=== PATIENT | male | born 1980 | race Two or more races ===

== ENCOUNTER 2017-10-18 11:38 | Emergency (ER) | payer MEDICAID, OTHER ==
[~2017-10-18] VITALS: Ht 188 cm; Wt 90.7 kg
[2017-10-18 13:54] LABS: Basophils # (auto) 0.1 uL; Basophils % (auto) 0.4 % (0.0-2.0); Eosinophils # (auto) 0.1 uL; Neutrophils % (auto) 63.2 % (37.0-80.0); White Blood Cell 12.6 10^3/uL (4.4-10.8)
[2017-10-18 13:55] LABS: Eosinophils % (auto) 0.7 % (0.0-7.0); Hematocrit 46.8 % (41.0-53.0); Hemoglobin 15.4 g/dL (13.5-17.5); Lymphocytes # (auto) 3.4 uL; Lymphocytes % (auto) 27.1 % (10.0-50.0); Mean Corpuscular Hemoglobin 27.5 pg (28.0-32.0); Mean Corpuscular Hgb Conc. 32.9 g/dL (32.0-36.0); Mean Corpuscular Volume 83.6 fL (80.0-100.0); Monocytes # (auto) 1.1 uL; Monocytes % (auto) 8.6 % (0.0-12.0); Platelet Count (auto) 297 10^3/uL (140-450); Red Blood Cells 5.59 10^6/uL (4.5-5.90); Red Cell Distribution Width 13.9 % (11.8-14.3)
[2017-10-18 14:16] LABS: Alanine Aminotransferase 36 U/L (16-61); Albumin 4.5 g/dL (3.4-5.0); Alkaline Phosphatase 69 U/L (45-117); Anion Gap 10 (5-15); Aspartate Aminotransferase 15 U/L (15-37); BUN/Creatinine Ratio 6.6; Bilirubin, Total 0.8 mg/dL (0.2-1.0); Blood Urea Nitrogen 8 mg/dL (7-18); Calcium 9.2 mg/dL (8.5-10.1); Carbon Dioxide 26 mmol/L (21-32); Chloride 102 mmol/L (98-107); GFR African American 86 mL/min; GFR Non-African American 71 mL/min; Glucose 85 mg/dL (74-106); Magnesium 2.4 mg/dL (1.6-2.6); Potassium 3.9 mmol/L (3.5-5.1); Sodium 138 mmol/L (136-145); Total Protein 8.7 g/dL (6.4-8.2)
[2017-10-18] MEDS ORDERED: KETOROLAC TROMETH 30 MG/ML 1ML VIAL IV ONE (15:00)
[2017-10-18] MEDS ORDERED: cefTRIAXone 1GM/10ml IVPUSH 10 ML IV ONE (15:00)
[2017-10-18] MEDS ORDERED: MORPHINE SULF INJ 2 MG/ML SYRINGE 1ML IV ONE (16:00)
[2017-10-18] MEDS ORDERED: ONDANSETRON HCL 4 MG/2 ML VIAL IV ONE (16:00)
[2017-10-18] MEDS ORDERED: SODIUM CHLORIDE 0.9% 1,000 ML IV ONE (16:00)
[2017-10-18 18:30] VITALS: BP 118/69
== END 2017-10-18 20:27 | disposition home or self-care (01) ==
LOC: ER 11:38
DX: G43.909 Migraine, unspecified, not intractable, without status migrainosus (principal); J01.90 Acute sinusitis, unspecified; J11.1 Influenza due to unidentified influenza virus with other respiratory manifestations; Z82.49 Family history of ischemic heart disease and other diseases of the circulatory system
CPT/HCPCS: 36415; 70450; 71046; 80053; 83735; 84484; 85025; 87804; 93005; 94761; 96361; 96374; 96375; 99285; J1885; J2270; J2405; 87400

== ENCOUNTER 2017-12-06 11:32 | Emergency (ER) | payer MEDICAID ==
[~2017-12-06] VITALS: Ht 188 cm; Wt 2.8 kg
[2017-12-06 12:22] LABS: Basophils # (auto) 0.2 uL; Eosinophils # (auto) 0.1 uL; Eosinophils % (auto) 1.2 % (0.0-7.0); Hematocrit 45.4 % (41.0-53.0); Hemoglobin 14.8 g/dL (13.5-17.5); Lymphocytes # (auto) 1.6 uL; Lymphocytes % (auto) 19.1 % (10.0-50.0); Mean Corpuscular Hemoglobin 27.5 pg (28.0-32.0); Mean Corpuscular Hgb Conc. 32.7 g/dL (32.0-36.0); Mean Corpuscular Volume 84.1 fL (80.0-100.0); Monocytes # (auto) 0.6 uL; Monocytes % (auto) 7.7 % (0.0-12.0); Neutrophils # (auto) 5.9 uL; Nucleated Red Blood Cells % 0.1 %; Platelet Count (auto) 332 10^3/uL (140-450); Red Blood Cells 5.39 10^6/uL (4.5-5.90); Red Cell Distribution Width 13.5 % (11.8-14.3); White Blood Cell 8.4 10^3/uL (4.4-10.8)
[2017-12-06 12:36] LABS: INR 1.06 (0.9-1.15); Prothrombin Time 11.6 sec (9.37-12.3)
[2017-12-06 12:44] LABS: Albumin 3.9 g/dL (3.4-5.0); BUN/Creatinine Ratio 8.5; Bilirubin, Total 0.3 mg/dL (0.2-1.0); Calcium 9.1 mg/dL (8.5-10.1); Potassium 3.8 mmol/L (3.5-5.1); Total Protein 8.3 g/dL (6.4-8.2)
[2017-12-06] MEDS ORDERED: ACETAMINOPHEN 325 MG TAB PO ONE ×2 (13:22→13:30)
[2017-12-06] MEDS ORDERED: KETOROLAC TROMETH 60MG/2ML VIAL IM ONE ×2 (13:55→14:00)
[2017-12-06] MEDS ORDERED: PROMETHAZINE HCL 25 MG/ML 1ML ONE (13:55)
[2017-12-06] MEDS ORDERED: PROMETHAZINE HCL 25 MG/ML 1ML IM ONE (14:00)
[2017-12-06] MEDS ORDERED: MEPERIDINE HCL (50 MG/ML) 1 ML VIAL IM ONE (15:15)
[2017-12-06 15:20] VITALS: BP 126/84
== END 2017-12-06 15:35 | disposition home or self-care (01) ==
LOC: ER 11:32 → EDBD 11:32 → EDSEX 11:32 → ER 15:35
DX: J01.90 Acute sinusitis, unspecified (principal); I10 Essential (primary) hypertension; Z86.718 Personal history of other venous thrombosis and embolism
CPT/HCPCS: 36415; 70450; 80053; 85025; 85610; 96372; 99285; J1885; J2175; J2550

== ENCOUNTER 2019-08-22 18:53 | Emergency (ER) | payer MEDICAID ==
[~2019-08-22] VITALS: Ht 182.9 cm; Wt 99.8 kg
[2019-08-22 19:00] VITALS: BP 107/72
== END 2019-08-22 21:54 | disposition left against medical advice (07) ==
LOC: ER 18:58
DX: R10.9 Unspecified abdominal pain (principal); R42 Dizziness and giddiness; R51 Headache; Z53.21 Procedure and treatment not carried out due to patient leaving prior to being seen by health care provider
CPT/HCPCS: 93005

== ENCOUNTER 2024-09-03 10:27 | Inpatient (IN) | payer MEDICAID ==
[~2024-09-03] VITALS: Ht 188 cm; Wt 100.5 kg
--- NOTE | 2024-09-03 10:50 | ED.PDOC ---
History of Present Illness HPI Comments 44M presents to the Er w/ prior Hx of HTN which may be associated to the c/c of High Blood Pressure. Pt reports on having a Hagan for the past 2 days and has to keep checking on his BP due from his medical Hx. Pt reports that when he checked his BP, the monitor read his HR to be in the low 40's this morning. Pt notes that he does not take any BP medications but only pain medication. PMHx of anxiety and DVT. Denies chills, fever, N/V/D,SOB, but did notice 1 day of dizziness and lightheadedness Chief Complaint: High Blood Pressure Time Seen by MD: 10:30 Primary Care Provider: EDUARD Reviewed Notes: Nurses Notes, Medications, Allergies Allergies: Coded Allergies: NO KNOWN ALLERGIES (Unverified , 10/18/17) Information Source: Patient Mode of Arrival: Ambulatory Severity: Moderate Timing: Hours Duration: Since onset, Hours Prehospital treatment: None Past Medical History PAST MEDICAL HISTORY: Anxiety, HTN Past Medical History (Other): DVT Surgical History: Denies all surgeries Family History Family History: Reviewed,noncontributory to illness, Unknown Social History Smoker: Non-Smoker Alcohol: Denies ETOH Use Drugs: Denies Drug Use Lives In: Home Constitutional: denies: chills, diaphoresis, fatigue, fever, malaise, sweats, weakness, others EENTM: denies: blurred vision, double vision, ear bleeding, ear discharge, ear drainage, ear pain, ear ringing, eye pain, eye redness, hearing loss, mouth pain, mouth swelling, nasal discharge, nose bleeding, nose congestion, nose pain, photophobia, tearing, throat pain, throat swelling, voice changes, others Respiratory: denies: cough, hemoptysis, orthopnea, SOB at rest, shortness of breath, SOB with excertion, stridor, wheezing, others Cardiovascular: reports: irregular heart beat, others (Low HR); denies: chest pain, dizzy spells, diaphoresis, Dyspnea on exertion, edema, left arm pain, lightheadedness, palpitations, PND, syncope Gastrointestinal: denies: abdomen distended, abdominal pain, blood streaked bowels, constipated, diarrhea, dysphagia, difficulty swallowing, hematemesis, melena, nausea, poor appetite, poor fluid intake, rectal bleeding, rectal pain, vomiting, others Genitourinary: denies: burning, dysuria, flank pain, frequency, hematuria, incontinence, penile discharge, penile sore, pain, testicle pain, testicle swelling, urgency, others Neurological: reports: dizziness; denies: fainting, headache, left sided numbness, left sided weakness, numbness, paresthesia, pre-existing deficit, right sided numbness, right sided weakness, seizure, speech problems, tingling, tremors, weakness, others Musculoskeletal: denies: back pain, gout, joint pain, joint swelling, muscle pain, muscle stiffness, neck pain, others Integumetry: denies: bruises, change in color, change in hair/nails, dryness, laceration, lesions, lumps, rash, wounds, others Allergic/Immunocompromised: denies: Difficulty Healing, Frequent Infections, Hives, Itching, others Hematologic/Lymphatic: denies: anemia, blood clots, easy bleeding, easy bru ising, swollen glands, others Endocrine: denies: excessive hunger, excessive sweating, excessive thirst, e xcessive urination, flushing, intolerance to cold, intolerance to heat, unexplained weight gain, unexplained weight loss, others Psychiatric: denies: anxiety, bipolar disorder, depression, hopeless, panic disorder, schizophrenia, sleepless, suicidal, others All Other Systems: Reviewed and Negative Physical Exam General Appearance: No Apparent Distress, Normal HEENT: Normal ENT Inspection, Pharynx Normal, TMs Normal Neck: Full Range of Motion, Non-Tender, Normal, Normal Inspection Respiratory: Chest Non-Tender, Lungs Clear, No Accessory Muscle Use, No Respiratory Distress, Normal Breath Sounds Cardiovascular: No Edema, No JVD, No Murmur, No Gallop, Normal Peripheral Pulses, Regular Rate/Rhythm Breast Exam: Deferred Gastrointestinal: No Organomegaly, Non Tender, No Pulsatile Mass, Normal Bowel Sounds, Soft Genitalia: Deferred Pelvic: Deferred Rectal: Deferred Extremities: No calf tenderness, Normal capillary refill, Normal inspection, Normal range of motion, Non-tender, No pedal edema Musculoskeletal : Apperance: Normal Neurologic: Alert, derrick hand II-XII nml as Tested, No Motor Deficits, Normal Affect, Normal Mood, No Sensory Deficits Cerebellar Function: Normal Reflexes: Normal Skin: Dry, Normal Color, Warm Lymphatic: No Adenopathy Was a procedure done? Was a procedure done?: No EKG EKG : Pulse Rate (adult): 71 [place]: Normal Cardiac Rhythm: NSR Block: None Hypertrophy: LVH ST: Normal Differential Dx Considerations may include: slow intermittent afib, sinus bradycardia, intermittent heart block, electrolyte disorders, beta javier effect X-Ray, Labs, Meds, VS Vital Signs Date Time Temp Pulse Resp B/P (MAP) Pulse Ox O2 Delivery O2 Flow Rate FiO2 09/03/24 11:19 93 18 98 Room Air* 0 21 09/03/24 11:19 98.1 98 18 151/107 (122) 99 98.1 09/03/24 10:40 71 09/03/24 10:32 98.1 86 18 148/104 (119) 100 Lab Test 09/03/24 11:46 09/03/24 10:54 Range/Units Troponin I High Sensitivity Pending 8 </=54 ng/L White Blood Count 6.2 4.4-10.8 10^3/uL Red Blood Count 5.36 4.5-5.90 10^6/uL Hemoglobin 14.9 13.5-17.5 g/dL Hematocrit 46.0 41.0-53.0 % Mean Corpuscular Volume 85.8 80.0-100.0 fL Mean Corpuscular Hemoglobin 27.8 L 28.0-32.0 pg Mean Corpuscular Hemoglobin Concent 32.4 32.0-36.0 g/dL Red Cell Distribution Width 14.5 H 11.8-14.3 % Platelet Count 247 140-450 10^3/uL Mean Platelet Volume 8.6 6.9-10.8 fL Neutrophils (%) (Auto) 56.3 37.0-80.0 % Lymphocytes (%) (Auto) 34.0 10.0-50.0 % Monocytes (%) (Auto) 6.7 0.0-12.0 % Eosinophils (%) (Auto) 2.5 0.0-7.0 % Basophils (%) (Auto) 0.5 0.0-2.0 % Neutrophils # (Auto) 3.5 1.6-8.6 10 ^3/uL Lymphocytes # (Auto) 2.1 0.4-5.4 10 ^3/uL Monocytes # (Auto) 0.4 0-1.3 10 ^3/uL Eosinophils # (Auto) 0.2 0-0.8 10 ^3/uL Basophils # (Auto) 0 0-0.2 10 ^3/uL Nucleated Red Blood Cells 0.1 % Sodium Level 140 136-145 mmol/L Potassium Level 3.5 3.5-5.1 mmol/L Chloride Level 102 98-107 mmol/L Carbon Dioxide Level 31 20-31 mmol/L Anion Gap 7 5-15 Blood Urea Nitrogen 11 9-23 mg/dL Creatinine 1.30 0.700-1.30 mg/dL Glomerular Filtration Rate Calc 70 >90 mL/min BUN/Creatinine Ratio 8.5 L 10.0-20.0 Serum Glucose 107 H 74-106 mg/dL Calcium Level 10.2 8.7-10.4 mg/dL Total Bilirubin 0.8 0.2-1.0 mg/dL Aspartate Amino Transferase (AST) 30 13-40 U/L Alanine Aminotransferase (ALT) 50 H 7-40 U/L Alkaline Phosphatase 63 46-116 U/L Total Protein 7.8 5.7-8.2 g/dL Albumin 4.8 3.2-4.8 g/dL Current Medications Medications (Trade) Dose Ordered Sig/Corine Route Start Time Stop Time Status Last Admin Acetaminophen/ Hydrocodone Bitart ([place] 5/325MG Tab) 1 tab ONCE ONCE PO 09/03/24 11:00 09/03/24 11:01 DC 09/03/24 11:27 Time of 1ST Reevaluation: 11:00 Reevaluation 1ST: Unchanged Time of 2ND Reevaluation: 12:04 Reevaluation 2ND: Improved Patient Education/Counseling: Diagnosis, Treatment, Prognosis Family Education/Counseling: No Family Present Additional Information - I reviewed the following notes from patient's past medical encounters:12/06/17 - The following tests were ordered, and results were reviewed by me: Labs, X- Ray, EKG - I reviewed and agreed with the following test results read by other provider: cxr - I discussed treatments and results with medical personnel and sales enablement consultant pt had verified bradycardia on his monitor with concurrent dizziness symptoms. the cardiac workup was unrevealing in the ER. we have not captured any arrhythmias, but if the arrythmia were intermittent, he would need continuous monitoring. he will be admitted Departure 1 Departure Time of Disposition: 12:06 Impression: Primary Impression: Symptomatic bradycardia Additional Impressions: Accelerated essential hypertension Renal insufficiency Disposition: 09 ADMITTED INPATIENT Admit to: Tele Condition: Stable Critical Care Note Critical Care Time?: Yes (45 min-critical care time only) Critical care comment: due to the likelihood of patients condition suddenly deteriorating, the care requires my highest level of attention, readiness to intervene. my critical care include assessing and reassessing of patient's condition, response to treatments, ordering the appropriate tests, reviewing the results, ordering of treatments, discussing the care with medical personnel and consultants, and formulating a treatment plan, as well a reviewing various medical records. this include at least 50% face-face interaction, and does not include any procedures Stability Stability form required: No Heart Score Heart Score: Heart Score Response (Comments) Value History Slightly Suspicious 0 EKG Repolarization Disturb 1 Age <45 0 Risk Factors 1 or 2 risk factors 1 Troponin Normal limit 0 Total 2 I personally scribed for JOSE MILLAN MD ([email or web address]) on 09/03/24 at 10:50. Electronically submitted by Deep Velasquez ([email or web address]). JOSE MILLAN MD Sep 03, 2024 10:50
[2024-09-03 11:04] LABS: Basophils # (auto) 0 10 ^3/uL (0-0.2); Basophils % (auto) 0.5 % (0.0-2.0); Eosinophils # (auto) 0.2 10 ^3/uL (0-0.8); Eosinophils % (auto) 2.5 % (0.0-7.0); Hemoglobin 14.9 g/dL (13.5-17.5); Lymphocytes # (auto) 2.1 10 ^3/uL (0.4-5.4); Mean Corpuscular Hemoglobin 27.8 pg (28.0-32.0); Mean Corpuscular Hgb Conc. 32.4 g/dL (32.0-36.0); Mean Corpuscular Volume 85.8 fL (80.0-100.0); Monocytes # (auto) 0.4 10 ^3/uL (0-1.3); Monocytes % (auto) 6.7 % (0.0-12.0); Neutrophils # (auto) 3.5 10 ^3/uL (1.6-8.6); Neutrophils % (auto) 56.3 % (37.0-80.0); Nucleated Red Blood Cells % 0.1 %; Platelet Count (auto) 247 10^3/uL (140-450); Red Blood Cells 5.36 10^6/uL (4.5-5.90); Red Cell Distribution Width 14.5 % (11.8-14.3); White Blood Cell 6.2 10^3/uL (4.4-10.8)
[2024-09-03 11:19] VITALS: PULSE 93; RESP 18; O2SAT 98
[2024-09-03 11:22] LABS: Alkaline Phosphatase 63 U/L (46-116); Anion Gap 7 (5-15); Aspartate Aminotransferase 30 U/L (13-40); BUN/Creatinine Ratio 8.5 (10.0-20.0); Blood Urea Nitrogen 11 mg/dL (9-23); Calcium 10.2 mg/dL (8.7-10.4); Carbon Dioxide 31 mmol/L (20-31); Chloride 102 mmol/L (98-107); Potassium 3.5 mmol/L (3.5-5.1); Sodium 140 mmol/L (136-145)
[2024-09-03 11:23] LABS: Bilirubin, Total 0.8 mg/dL (0.2-1.0); Total Protein 7.8 g/dL (5.7-8.2)
--- NOTE | 2024-09-03 11:23 | DVH ---
EXAM: XR Chest, 1 View CLINICAL INDICATION: bradycardia, dizzy TECHNIQUE: Frontal view of the chest. COMPARISON: None FINDINGS: LUNGS AND PLEURAL SPACES: Unremarkable. No consolidation. No pneumothorax. HEART: Unremarkable. No cardiomegaly. MEDIASTINUM: Unremarkable. Normal mediastinal contour. BONES/JOINTS: Unremarkable. No acute fracture. OTHER FINDINGS: . . . IMPRESSION: No acute cardiopulmonary process. HS:Y
[2024-09-03] MEDS: HYDROcodone-ACET 5/325MG TAB PO ONE (11:27)
[2024-09-03 11:33] LABS: Alanine Aminotransferase 50 U/L (7-40); Albumin 4.8 g/dL (3.2-4.8); Glucose 107 mg/dL (74-106)
[2024-09-03] MEDS ORDERED: MAALOX PLUS or MAALOX 30 ML PO PRN (14:15)
[2024-09-03] MEDS ORDERED: DEXTROSE (50%) 50ML SYRG IV PRN (14:15)
[2024-09-03] MEDS ORDERED: ONDANSETRON HCL 4 MG/2 ML VIAL IV PRN (14:15)
[2024-09-03] MEDS ORDERED: TEMAZEPAM 15 MG CAP PO PRN (14:15)
[2024-09-03] MEDS: SODIUM CHLORIDE 0.9% 1,000 ML IV SCH (14:15)
[2024-09-03] MEDS ORDERED: DOCUSATE SOD 100 MG CAP PO PRN (14:15)
[2024-09-03] MEDS ORDERED: ACETAMINOPHEN 325 MG TAB PO PRN (14:15)
[2024-09-03] MEDS ORDERED: hydrALAZINE HCL 20 MG/ML VL IV PRN (14:15)
--- NOTE | 2024-09-03 14:27 | DVHHP2 ---
History of Present Illness Reason for Visit: headaches History of Present Illness 44-year-old obese patient comes in with complaints of having high blood pressure patient has a history of high blood pressure states that his blood pressure has been high over the past few days causing him to have severe headaches states that normally when his blood pressure is not controlled it does lead to him having headaches sometimes nausea and vomiting denies having nausea and vomiting this time but does stated he has as continuous weakness dizziness and blurry vision patient was recommended for admission and further evaluation for the management of acute hypertensive urgency patient also noted that his heart rate was also slow at this point in time with a heart rate as low as the 40s since being in the ED his heart rate has not been this low again and has been sustained any regular fashion however may require further evaluation and possible cardio evaluation Cardiovascular: HTN Review of Systems Constitutional: Yes: Weakness; No: Fever, Chills, Sweats, Malaise, Other Eyes: No: Pain, Vision change, Conjunctivae inflammation, Eyelid inflammation, Other, Redness ENT: No: Ear pain, Ear discharge, Nose pain, Nose discharge, Nose congestion, Mouth pain, Mouth swelling, Throat pain, Throat swelling, Other Respiratory: No: Cough, Dry, Shortness of breath, SOB with excertion, Wheezing, Hemoptysis, Pleuritic Pain, Sputum, Wheezing, Other Cardiovascular: Palpitations; No: Chest Pain, Orthopnea, Paroxysmal Noc. Dyspnea, Edema, Lt Headedness, Other Gastrointestinal: No: Nausea, Vomiting, Abdominal Pain, Diarrhea, Constipation, Melena, Hematochezia, Other Genitourinary: No Dysuria, No Frequency, No Incontinence, No Hematuria, No Retention, No Other Musculoskeletal: No: other, neck pain, shoulder pain, arm pain, back pain, hand pain, leg pain, foot pain Skin: No: Rash, Lesions, Jaundice, Bruising, Other Neurological: Weakness; No: Numbness, Incoordination, Change in speech, Confusion, Seizures, Other Allergies: Coded Allergies: NO KNOWN ALLERGIES (Unverified , 10/18/17) Exam Vital Signs Vital Signs Date Time Temp Pulse Resp B/P (MAP) Pulse Ox O2 Delivery O2 Flow Rate FiO2 09/03/24 11:19 93 18 98 Room Air* 0 21 09/03/24 11:19 98.1 151/107 (122) 98.1 General Appearance: Oriented X3, mild distress HEENT: Atraumatic, PERRLA, EOMI Respiratory: Clear to auscultation, Normal air movement Cardiovascular: Regular rate, Normal S1, Normal S2 Abdominal: Normal bowel sounds, Soft, No tenderness Extremities: No clubbing, No cyanosis Skin: No rashes, No breakdown, No significant lesion Neuro: Normal gait, Normal speech Psych/Mental Status: Mood NL Labs/Xrays Labs Test 09/03/24 11:46 09/03/24 10:54 Range/Units Troponin I High Sensitivity 8 </=54 ng/L White Blood Count 6.2 4.4-10.8 10^3/uL Red Blood Count 5.36 4.5-5.90 10^6/uL Hemoglobin 14.9 13.5-17.5 g/dL Hematocrit 46.0 41.0-53.0 % Mean Corpuscular Volume 85.8 80.0-100.0 fL Mean Corpuscular Hemoglobin 27.8 L 28.0-32.0 pg Mean Corpuscular Hemoglobin Concent 32.4 32.0-36.0 g/dL Red Cell Distribution Width 14.5 H 11.8-14.3 % Platelet Count 247 140-450 10^3/uL Mean Platelet Volume 8.6 6.9-10.8 fL Neutrophils (%) (Auto) 56.3 37.0-80.0 % Lymphocytes (%) (Auto) 34.0 10.0-50.0 % Monocytes (%) (Auto) 6.7 0.0-12.0 % Eosinophils (%) (Auto) 2.5 0.0-7.0 % Basophils (%) (Auto) 0.5 0.0-2.0 % Neutrophils # (Auto) 3.5 1.6-8.6 10 ^3/uL Lymphocytes # (Auto) 2.1 0.4-5.4 10 ^3/uL Monocytes # (Auto) 0.4 0-1.3 10 ^3/uL Eosinophils # (Auto) 0.2 0-0.8 10 ^3/uL Basophils # (Auto) 0 0-0.2 10 ^3/uL Nucleated Red Blood Cells 0.1 % Sodium Level 140 136-145 mmol/L Potassium Level 3.5 3.5-5.1 mmol/L Chloride Level 102 98-107 mmol/L Carbon Dioxide Level 31 20-31 mmol/L Anion Gap 7 5-15 Blood Urea Nitrogen 11 9-23 mg/dL Creatinine 1.30 0.700-1.30 mg/dL Glomerular Filtration Rate Calc 70 >90 mL/min BUN/Creatinine Ratio 8.5 L 10.0-20.0 Serum Glucose 107 H 74-106 mg/dL Calcium Level 10.2 8.7-10.4 mg/dL Total Bilirubin 0.8 0.2-1.0 mg/dL Aspartate Amino Transferase (AST) 30 13-40 U/L Alanine Aminotransferase (ALT) 50 H 7-40 U/L Alkaline Phosphatase 63 46-116 U/L Total Protein 7.8 5.7-8.2 g/dL Albumin 4.8 3.2-4.8 g/dL Assessment/Plan Assessment/Plan Admit to [facility] Hypertensive urgency Monitor blood pressure closely P.r.n. blood pressure medication as required No confirmed home medication at this point in time for management of blood pressure we will continue p.r.n. hydralazine No stated history of hyperglycemia or diabetes Patient with hyperglycemia noted on a.m. labs p.r.n. as needed insulin sliding scale mild Inpatient physician to consider cardio evaluation patient is no longer bradycardic However evaluation may be considered Plan discussed with: Patient My Orders Orders - MERCY BUCK MD Procedure Category Date Status Time Glucose Blood PHA 09/03/24 Logged (Accu-Chek Comfort 16:00 Insulin R (Human) PHA 09/03/24 Logged (Insulin R) 16:00 Dextrose 50% Syringe PHA 09/03/24 Logged 14:15 Hydralazine Injection PHA 09/03/24 Logged (Apresoline Inject 14:15 Notify Of Changes [facility] 09/03/24 In Process From Base 14:07 Black Leather Buffer For [facility] 09/03/24 In Process 24 Hours 14:07 Oxygen By Nasal RT 09/03/24 Transmitted Cannula 14:07 Admit ADMIT 09/03/24 Transmitted 14:12 Code Status CODE 09/03/24 Transmitted 14:12 Vital Signs JOSE 09/03/24 In Process 14:12 Review Orders With [facility] 09/03/24 In Process Adm. 14:12 Consistent DIET 09/03/24 Transmitted Carb(Ccho)Diabetes Dinner Sodium Chloride 0.9% PHA 09/03/24 Logged 14:15 Lorazepam Tablet PHA 09/03/24 Logged (Ativan Tablet) 14:15 Alum & Mag PHA 09/03/24 Logged Hydrox-Simethicone 14:15 Docusate Sodium PHA 09/03/24 Logged Capsule (Colace 14:15 Acetaminophen Tablet PHA 09/03/24 Logged (Tylenol Tablet) 14:15 Temazepam (Restoril) PHA 09/03/24 Logged 14:15 Notify Md Of Changes [facility] 09/03/24 In Process From Base 14:12 Advance Directive JOSE 09/03/24 In Process 14:12 Basic Metabolic Panel LAB 09/04/24 Verified 04:00 Complete Blood Count LAB 09/04/24 Verified 04:00 Patient Condition ORDERS 09/03/24 Transmitted 14:12 Allergies JOSE 09/03/24 In Process 14:12 Hydrocodone-Acet PHA 09/03/24 Logged 5/325mg Tab ([place] 14:15 Ondansetron Hcl PHA 09/03/24 Logged (Zofran) 14:15 Morphine Sulfate PHA 09/03/24 Logged Injection 14:15 Oxygen By Nasal RT 09/03/24 Transmitted Cannula 14:12 Notify Md Of Changes [facility] 09/03/24 In Process From Base 14:12 Date of Service: Sep 03, 2024 Billing Provider: MERCY BUCK MD Common Visit Codes: [id number] INP/OBS CARE (HIGH) MERCY BUCK MD Sep 03, 2024 14:27
[2024-09-03] MEDS: ACCU-CHEK COMFORT CURVE STRIP VI SCH (16:00)
[2024-09-03] MEDS: InsuLIN REG 1unit/0.01ml Soln (100units/ml) SC SCH (16:00)
[2024-09-03] MEDS: MORPHINE SULFATE INJ 2 MG/ml SYRG IV PRN (18:29)
[2024-09-03 18:32] VITALS: BP 152/113; PULSE 68; RESP 19; TEMP 98.9; O2SAT 95
[2024-09-03] MEDS: HYDROcodone-ACET 5/325MG TAB PO PRN (19:58)
[2024-09-03] MEDS: LORazepam 0.5 MG TAB PO PRN (19:58)
[2024-09-03 23:10] VITALS: BP 145/97; PULSE 63; RESP 18; TEMP 98.2; O2SAT 96
[2024-09-03] MEDS: HYDROcodone-ACET 10/325MG TAB PO PRN (23:27)
[2024-09-04 01:43] VITALS: BP 146/105; PULSE 59; RESP 18; O2SAT 99
[2024-09-04 02:00] VITALS: PULSE 59; RESP 18; O2SAT 97
[2024-09-04 04:41] LABS: Basophils # (auto) 0 10 ^3/uL (0-0.2); Basophils % (auto) 0.7 % (0.0-2.0); Eosinophils # (auto) 0.2 10 ^3/uL (0-0.8); Hematocrit 43.3 % (41.0-53.0); Hemoglobin 14.2 g/dL (13.5-17.5); Lymphocytes # (auto) 2.3 10 ^3/uL (0.4-5.4); Lymphocytes % (auto) 39.1 % (10.0-50.0); Mean Corpuscular Hemoglobin 28.2 pg (28.0-32.0); Mean Corpuscular Hgb Conc. 32.8 g/dL (32.0-36.0); Monocytes # (auto) 0.5 10 ^3/uL (0-1.3); Monocytes % (auto) 9.1 % (0.0-12.0); Neutrophils # (auto) 2.8 10 ^3/uL (1.6-8.6); Neutrophils % (auto) 48.1 % (37.0-80.0); Nucleated Red Blood Cells % 0.1 %; Platelet Count (auto) 230 10^3/uL (140-450); Red Blood Cells 5.03 10^6/uL (4.5-5.90); Red Cell Distribution Width 14.5 % (11.8-14.3); White Blood Cell 5.8 10^3/uL (4.4-10.8)
[2024-09-04 04:53] LABS: Chloride 103 mmol/L (98-107); Potassium 3.9 mmol/L (3.5-5.1); Sodium 141 mmol/L (136-145)
[2024-09-04 04:54] LABS: Anion Gap 7 (5-15); Calcium 10.3 mg/dL (8.7-10.4)
[2024-09-04 04:59] LABS: BUN/Creatinine Ratio 7.4 (10.0-20.0); Blood Urea Nitrogen 9 mg/dL (9-23); Carbon Dioxide 31 mmol/L (20-31); Glucose 93 mg/dL (74-106)
[2024-09-04 06:48] VITALS: BP 129/90; PULSE 55; RESP 18; TEMP 97.7; O2SAT 98
[2024-09-04 08:00] VITALS: BP 154/103; PULSE 70; RESP 16; TEMP 98; O2SAT 98
--- NOTE | 2024-09-04 17:05 | DVHDSRES ---
Discharge Summary Date of Admission Resident Creating Document: JIM FRANK RESIDENT Sep 03, 2024 at 14:12 Date of Discharge: Sep 04, 2024 Admitting Diagnosis Severe headaches associated ruled elevated blood pressure Wounds: no wounds Labs/Diagnostic Data: Laboratory Results Test 09/04/24 08:01 09/04/24 04:17 09/03/24 11:46 09/03/24 10:54 POC Glucose 95 mg/dl (70-106) White Blood Count 5.8 10^3/uL (4.4-10.8) Red Blood Count 5.03 10^6/uL (4.5-5.90) Hemoglobin 14.2 g/dL (13.5-17.5) Hematocrit 43.3 % (41.0-53.0) Mean Corpuscular Volume 86.0 fL (80.0-100.0) Mean Corpuscular Hemoglobin 28.2 pg (28.0-32.0) Mean Corpuscular Hemoglobin Concent 32.8 g/dL (32.0-36.0) Red Cell Distribution Width 14.5 % (11.8-14.3) Platelet Count 230 10^3/uL (140-450) Mean Platelet Volume 8.9 fL (6.9-10.8) Neutrophils (%) (Auto) 48.1 % (37.0-80.0) Lymphocytes (%) (Auto) 39.1 % (10.0-50.0) Monocytes (%) (Auto) 9.1 % (0.0-12.0) Eosinophils (%) (Auto) 3.0 % (0.0-7.0) Basophils (%) (Auto) 0.7 % (0.0-2.0) Neutrophils # (Auto) 2.8 10 ^3/uL (1.6-8.6) Lymphocytes # (Auto) 2.3 10 ^3/uL (0.4-5.4) Monocytes # (Auto) 0.5 10 ^3/uL (0-1.3) Eosinophils # (Auto) 0.2 10 ^3/uL (0-0.8) Basophils # (Auto) 0 10 ^3/uL (0-0.2) Nucleated Red Blood Cells 0.1 % Sodium Level 141 mmol/L (136-145) Potassium Level 3.9 mmol/L (3.5-5.1) Chloride Level 103 mmol/L (98-107) Carbon Dioxide Level 31 mmol/L (20-31) Anion Gap 7 (5-15) Blood Urea Nitrogen 9 mg/dL (9-23) Creatinine 1.22 mg/dL (0.700-1.30) Glomerular Filtration Rate Calc 75 mL/min (>90) BUN/Creatinine Ratio 7.4 (10.0-20.0) Serum Glucose 93 mg/dL (74-106) Calcium Level 10.3 mg/dL (8.7-10.4) Troponin I High Sensitivity 8 ng/L (</=54) Total Bilirubin 0.8 mg/dL (0.2-1.0) Aspartate Amino Transferase (AST) 30 U/L (13-40) Alanine Aminotransferase (ALT) 50 U/L (7-40) Alkaline Phosphatase 63 U/L (46-116) Total Protein 7.8 g/dL (5.7-8.2) Albumin 4.8 g/dL (3.2-4.8) Other Laboratory Tests 09/04/24 04:17 Brief Hx & Hospital Course: Patient is a 44-year-old male with no significant past medical history came to the ED with a chief complaint of having high blood pressure with the associated severe headache which the patient stated was normal for him to get headaches in his blood pressure was high as reported to the ED physician. Patient denied nausea or vomiting but stated he felt weak and dizzy. Initial labs shows CBC with WBC, hemoglobin and hematocrit, platelets within normal limit. Basic metabolic profile shows electrolytes, creatinine and GFR within normal limits. Patient had a mild elevation of ALT. Chest x-ray showed no acute cardiopulmonary disease. Patient was admitted to the hospital for further workup but before the patient could be seen after being admitted, he left against medical advice. Case discussed with Dr. Moreira Consults/Reason for consult no consultation Operations or Procedures Chest X ray was done which showed no acute cardiopulmoanry disease Condition at Discharge: Undetermined (Left AMA) Final Diagnosis/Problems List Uncontrolled Hypertension causing severe headaches; suspected hypertensive emergency Discharge Disposition: AMA Discharge Instruct/Medications Diet: See Comment (Left AMA) Activity: See Comment (Left AMA) Follow Up/Referral: Left AMA Medications: Left AMA Discharge Statement: "Patient was advised to return to the ER or call 911 if any headaches, dizziness, shortness of breath, chest pain, abdominal pain, bleeding, fevers, or worsening of medical condition. Patient was counseled about treatment plan, medications, possible side effects, patientverbalized understanding. All questions were answered to the best of my ability. This discharge took greater then 30 minutes in planning, reviewing documentation, counseling the patient, and discussing with other team members." ASSESSMENT ASSESSMENT Assessment Addendum Addendum Addendum I was physically present for the waterman portions of the service provided to patient by THE RESIDENT. I have reviewed the documentation, discussed the case with resident and agree with the resident's documentation except as noted. Also the patient's clinical case was discussed with the patient's nurse. This medical document was created using an electronic medical record system with computerized dictation system. Although this document has been carefully reviewed, there might still be some phonetic and typographical errors. These areas are purely typographical due to imperfections of the software programs, and do not reflect any compromise in the patient's medical care. Late signature. Dr. Moreira signed the AMA paperwork for the patient but could not examine the patient. Date of Service: Sep 04, 2024 Billing Provider: ANGELIA MOREIRA MD Common Visit Codes: 65059-PBC/OBS DISCH DAY >30min JIM FRANK RESIDENT Sep 04, 2024 17:05 ANGELIA MOREIRA MD Sep 04, 2024 23:09
--- NOTE | 2024-09-05 11:16 | ECG ---
[facility] Test Date: 2024-09-03 Test Time: 10:40:41 Pat Name: TOMA MILTON Department: ER Room: [address] [place] [address] Gender: M Body Welder: GILBERT : 1980 Requested By: JOSE MILLAN Order Number: [id number] Reading MD: Measurements Intervals [place] Rate: 71 P: 32 DC: 154 QRS: 29 QRSD: 101 T: 12 QT: 433 QTc: 471 Interpretive Statements Sinus rhythm Left ventricular hypertrophy Inferior infarct, old Baseline wander in lead(s) II,V3 Please click the below link to view image of tracing.
== END 2024-09-04 09:08 | disposition left against medical advice (07) | DRG 199 ==
LOC: ER 10:27 → OVERFLOW 13:59
PROVIDERS: ADMIT Hospitalist; ATTEND Hospitalist
DX: I16.1 Hypertensive emergency (principal); E66.9 Obesity, unspecified; Z53.29 Procedure and treatment not carried out because of patient's decision for other reasons; N28.9 Disorder of kidney and ureter, unspecified; R73.9 Hyperglycemia, unspecified; Z79.899 Other long term (current) drug therapy; Z68.28 Body mass index [BMI] 28.0-28.9, adult
CPT/HCPCS: 36415; 71045; 80048; 80053; 82962; 84484; 85025; 93005; 99291; G0378